=== PATIENT | female | born 1935 | race Caucasian/White ===

== ENCOUNTER 2022-05-15 18:27 | Observation (INO) | payer MEDICARE, OTHER ==
[~2022-05-15] VITALS: Ht 154.9 cm; Wt 97.5 kg
[~2022-05-15 18:27] MED LIST: AMLODIPINE BESYL5 MG PO; CLARITIN10 MG PO; D3-501250 MCG PO; DEX4 GLUCOSE4 GM PO; DYAZIDE 37.5/251 EA PO; FOSAMAX70 MG PO; GABAPENTIN300 MG PO; GLUCOPHAGE1000 MG PO; HUMULIN 70100 UNIT/1 SC; HYDRALAZINE HCL25 MG PO; IMIPRAMINE HCL25 MG PO; INVANZ 1 GM VIAL1 GM IV; IPRAT-ALBUT 0.5-3 ML NEB; LOTENSIN20 MG PO; METHOCARBAMOL500 MG PO; NEURONTIN600 MG PO; NORCO 5-325 TA1 EACH PO; PROAIR HFA8.5 GM INH; REMERON15 MG PO; ROBITUSSIN DM UD5 ML PO; TESSALON PERLE100 MG PO; TYLENOL W/CODEIN1 E1 PO; VITAMIN D250000 UNIT PO
[2022-05-15 19:49] LABS: HEMOGLOBIN 12.3 gm/dl (12.3-15.3); RED BLOOD COUNT 5.07 M/UL (4.00-5.10)
[2022-05-16 06:14] LABS: HEMOGLOBIN 11.8 gm/dl (12.3-15.3); RED BLOOD COUNT 4.97 M/UL (4.00-5.10); WHITE BLOOD COUNT 9.1 K/UL (4.5-11.0)
[2022-05-16 06:31] LABS: BUN/CREATININE RATIO 17 (0-10)
[2022-05-16] MEDS ORDERED: PROAIR HFA8.5 GM INH (10:52)
[2022-05-16] MEDS ORDERED: PROTONIX40 MG PO (10:54)
[2022-05-16] MEDS ORDERED: NOVOLIN 70100 UNIT/2 SQ (10:54)
[2022-05-16] MEDS ORDERED: ACETAMINOPHEN-1 EAC1 PO (10:56)
[2022-05-16] MEDS ORDERED: ZOLPIDEM TARTRAT5 MG PO (11:00)
[2022-05-16] MEDS ORDERED: BENAZEPRIL HCL20 MG PO (11:01)
[2022-05-16] MEDS ORDERED: TRIAMTERENE-HC1 EAC1 PO (11:01)
[2022-05-16] MEDS ORDERED: DONEPEZIL HCL10 MG PO (11:03)
[2022-05-16] MEDS ORDERED: SEROQUEL50 MG PO (14:50)
[2022-05-16] MEDS ORDERED: HYDRALAZINE HCL25 MG PO (14:54)
[2022-05-16] MEDS ORDERED: VOLTAREN ARTHRI20 GM TOP (14:55)
[2022-05-17 06:44] LABS: HEMOGLOBIN 12.5 gm/dl (12.3-15.3); RED BLOOD COUNT 5.06 M/UL (4.00-5.10); WHITE BLOOD COUNT 10.6 K/UL (4.5-11.0)
[2022-05-17 07:08] LABS: BUN/CREATININE RATIO 18 (0-10)
[2022-05-17] MEDS ORDERED: ATORVASTATIN CA40 MG PO (13:51)
[2022-05-17] MEDS ORDERED: ASPIRIN EC81 MG PO (13:51)
--- NOTE | 2022-05-17 16:17 | NUR ---
1617- ATTEMPTED TO CALL REPORT TO [facility]. SPOKE TO TINO, HE STATED THERE WAS A PROBLEM WITH PTS INSURANCE AND UNTIL THEY GET IT FIXED THEY ARE UNSURE IF THEY WILL ACCEPT HER BACK TO HOME [facility]. NOTIFIED BRANCH CHIEF, FAMILY AND .
== END 2022-05-17 17:24 | disposition home or self-care (01) ==
LOC: ER1 18:27 → CDU 21:54 → MED SURG 4 21:54
PROVIDERS: Family Medicine; Internal Medicine; ADMIT Internal Medicine
DX: G45.9 Transient cerebral ischemic attack, unspecified (principal); Z20.822 Contact with and (suspected) exposure to COVID-19; I10 Essential (primary) hypertension; E11.9 Type 2 diabetes mellitus without complications; K21.9 Gastro-esophageal reflux disease without esophagitis; H54.8 Legal blindness, as defined in USA; M81.0 Age-related osteoporosis without current pathological fracture; M19.90 Unspecified osteoarthritis, unspecified site; Z79.4 Long term (current) use of insulin; Z79.899 Other long term (current) drug therapy; Z88.2 Allergy status to sulfonamides
CPT/HCPCS: ECHO; 36415; 70450; 70496; 70498; 70551; 71045; 80048; 80053; 80061; 81001; 82550; 82553; 82962; 83036; 83605; 83690; 83735; 83880; 84100; 84439; 84443; 84484; 85025; 85610; 92507; 92526; 92610; 93005; 93306; 96372; 97110-GP-CQ; 97116; 97116-GP-CQ; 97161; 97165; 97535; 99285; G0378; J1650; Q9967; U0002

== ENCOUNTER 2022-06-12 18:05 | Emergency (ER) | payer MEDICARE, OTHER ==
[~2022-06-12 18:05] MED LIST changes: +ACETAMINOPHEN-1 EAC1 PO; +ASPIRIN EC81 MG PO; +ATORVASTATIN CA40 MG PO; +BENAZEPRIL HCL20 MG PO; +DONEPEZIL HCL10 MG PO; +NOVOLIN 70100 UNIT/2 SQ; +PROTONIX40 MG PO; +SEROQUEL50 MG PO; +TRIAMTERENE-HC1 EAC1 PO; +VOLTAREN ARTHRI20 GM TOP; +ZOLPIDEM TARTRAT5 MG PO
== END 2022-06-12 19:00 | disposition home or self-care (01) ==
LOC: ER1 18:05
DX: S56.911A Strain of unspecified muscles, fascia and tendons at forearm level, right arm, initial encounter (principal); E11.9 Type 2 diabetes mellitus without complications; E78.5 Hyperlipidemia, unspecified; I10 Essential (primary) hypertension; Z86.73 Personal history of transient ischemic attack (TIA), and cerebral infarction without residual deficits; Z88.2 Allergy status to sulfonamides; X50.1XXA Overexertion from prolonged static or awkward postures, initial encounter; X50.9XXA Other and unspecified overexertion or strenuous movements or postures, initial encounter
CPT/HCPCS: 73090; 99283